=== PATIENT | female | born 1995 | race Caucasian/White ===

== ENCOUNTER 2017-05-16 11:28 | Emergency (ER) | payer BC ==
[2017-05-16 11:33] VITALS: RESP 16; TEMP 97.7; O2SAT 100; BMI 23.8
[2017-05-16] MEDS ORDERED: Naproxen 500 MG TAB PO ONE ×2 (12:33→12:47)
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
--- NOTE | 2017-05-16 13:51 | RAD ---
PROCEDURE: Right Foot Radiographs. HISTORY: trauma COMPARISON: None. FINDINGS: BONES: Medial to the 1st metatarsal head, a 2 x 1 mm flake like ossification is noted. The site of trauma is not specified. This could represent a tiny flake chip/avulsive flake osseous fragment. No more significant appearing cortical fractures noted JOINTS: Normal. SOFT TISSUES: Possible minimal swelling/minimal increased density - medial 1st metatarsal -phalangeal joint level. OTHER FINDINGS: None. IMPRESSION: Possible tiny flake chip avulsive osseous fragment. No larger or more significant appearing cortical fracture appreciated. No definitive donor site appreciated
--- NOTE | 2017-05-16 14:48 | RAD ---
PROCEDURE: Right Ankle Radiographs. HISTORY: trauma COMPARISON: None FINDINGS: BONES: Normal. No fracture. JOINTS: Normal. No osteoarthritis. Ankle mortise maintained. Talar dome intact SOFT TISSUES: Normal. OTHER FINDINGS: None. IMPRESSION: Normal right ankle radiographs.
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
[2017-05-16 16:23] VITALS: BP 115/71; PULSE 73
== END 2017-05-16 16:21 | disposition home or self-care (01) ==
LOC: H.ER 11:28
DX: S92.311A Displaced fracture of first metatarsal bone, right foot, initial encounter for closed fracture (principal); S99.911A Unspecified injury of right ankle, initial encounter; W01.0XXA Fall on same level from slipping, tripping and stumbling without subsequent striking against object, initial encounter; Y92.89 Other specified places as the place of occurrence of the external cause; J45.909 Unspecified asthma, uncomplicated; F17.210 Nicotine dependence, cigarettes, uncomplicated